=== PATIENT | male | born 1995 | race Two or more races ===

== ENCOUNTER 2018-11-27 19:25 | Emergency (ER) | payer SELFPAY ==
[2018-11-27 19:31] VITALS: BP 145/90; PULSE 115; BMI 30.2
[2018-11-27] MEDS ORDERED: ACETAMINOPHEN 325 MG TABLET (FP) ONE (20:22)
--- NOTE | 2018-11-27 20:22 | PDOC ---
History of Present Illness - General Chief Complaint: Pain, Acute Stated Complaint: HEADACE Time Seen by Provider: 11/27/18 19:48 History Source: Patient Exam Limitations: No Limitations - History of Present Illness Initial Comments: 11/27/18 20:19 HISTORY OF PRESENT ILLNESS: No recent travel or sick contacts. PAST MEDICAL HISTORY: Denies past medical history SURGICAL HISTORY: Denies ALLERGIES: No known drug allergies REVIEW OF SYSTEMS General/Constitutional: Denies fever or chills. Denies weakness, weight change. HEENT: Denies change in vision. Denies ear pain or discharge. Denies sore throat. Cardiovascular: Denies chest pain or shortness of breath. Respiratory: Denies cough, wheezing, or hemoptysis. Gastrointestinal: Denies nausea, vomiting, diarrhea or constipation. Denies rectal bleeding. Genitourinary: Denies dysuria, frequency, or change in urination. Musculoskeletal: Denies joint or muscle swelling or pain. Denies neck or back pain. Skin and breasts: Denies rash or easy bruising. Neurologic: Denies headache, vertigo, loss of consciousness, or loss of sensation. Psychiatric: Denies depression or anxiety. Endocrine: Denies increased thirst. Denies abnormal weight change. Hematologic/Lymphatic: Denies anemia, easy bleeding, or history of blood clots. Allergic/Immunologic: Denies hives or skin allergy. Denies latex allergy. PHYSICAL EXAM General Appearance: Well-appearing, appropriately dressed. No apparent distress , no intoxication. HEENT: EOMI, PERRLA, normal ENT inspection, normal voice, TMs normal, pharynx normal. No conjunctival pallor. No photophobia, scleral icterus. Neck: Supple. Trachea midline. No tenderness, rigidity, carotid bruit, stridor , lymphadenopathy, or thyromegaly. Respiratory/Chest: Lungs CTAB. No shortness of breath, chest tenderness, respiratory distress, accessory muscle use. No crackles, rales, rhonchi, stridor , wheezing, dullness Cardiovascular: RRR. S1, S2. No JVD, murmur, bradycardia, tachycardia. Vascular Pulses: Dorsalis-Pedis (R): 2+, Dorsalis-Pedis (L): 2+ Gastrointestinal/Abdominal: Normal bowel sounds. Abdomen soft, non-distended. No tenderness or rebound tenderness. No organomegaly, pulsatile mass, guarding, hernia, hepatomegaly, splenomegaly. Lymphatic: No adenopathy, tenderness. Musculoskeletal/Extremities: Normal inspection. FROM of all extremities, normal capillary refill. Pelvis Stable. No CVA tenderness. No tenderness to extremities, pedal edema, swelling, erythema or deformity. Integumentary: Appropriate color, dry, warm. 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 Fully oriented, alert. Appropriate mood/affect. Motor strength 5/5. No appreciable EOM palsy, facial droop or sensory deficit. Past History - Past Medical History Allergies/Adverse Reactions: Allergies Allergy/AdvReac Type Severity Reaction Status Date / Time No Known Allergies Allergy Verified 11/27/18 19:31 Home Medications: Ambulatory Orders NK [No Known Home Medication] 11/27/18 COPD: No CHF: No - Immunization History Immunization Up to Date: Yes - Suicide/Smoking/Psychosocial Hx Smoking History: Never smoked Have you smoked in the past 12 months: No Information on smoking cessation initiated: No Hx Alcohol Use: No Drug/Substance Use Hx: No *Physical Exam - Vital Signs Last Vital Signs Temp Pulse Resp BP Pulse Ox 101.2 F H 115 H 16 145/90 100 11/27/18 19:29 11/27/18 19:29 11/27/18 19:29 11/27/18 19:29 11/27/18 19:29 Moderate Sedation - Procedure Monitoring Vital Signs: Procedure Monitoring Vital Signs Temperature 101.2 F H 11/27/18 19:29 Pulse Rate 115 H 11/27/18 19:29 Respiratory Rate 16 11/27/18 19:29 Blood Pressure 145/90 11/27/18 19:29 O2 Sat by Pulse Oximetry (%) 100 11/27/18 19:29 Medical Decision Making - Medical Decision Making 11/27/18 20:19 /P: 23-year-old male with postconcussive syndrome and probable upper respiratory infection Cranial nerves II through XII grossly intact Gait steady Oropharynx mildly erythematous Tylenol 650 mg orally now Motrin 600 mg orally now Discharge home *DC/Admit/Observation/Transfer Diagnosis at time of Disposition: Post concussion syndrome URI (upper respiratory infection) Qualifiers: URI type: acute nasopharyngitis (common cold) Qualified Code(s): J00 - Acute nasopharyngitis [common cold] - Discharge Dispostion Disposition: HOME Condition at time of disposition: Stable Decision to Admit order: No - Referrals - Patient Instructions Additional Instructions: Rest, drink lots of fluids: Teas, water, soups, Pedialyte Saltwater gargles Steamy showers/seem to face break up mucus Avoid contact with others until fevers and cough resolved Lots of handwashing and good hygiene Continue [id number] medications for symptomatic relief Tylenol or Motrin for fever and pain Avoid electronic devices including computers, tablets, phones and television. Avoid reading. Follow-up with your doctor within the next week for reevaluation. Child symptoms may last for 4-6 weeks. This is normal. If you sustain another head injury the time period would restart. Return to the emergency department for any new or worsening symptoms. Followup with private physician in one to 2 days as needed Return to emergency department for worsened symptoms, fevers, dehydration - Post Discharge Activity Forms/Work/School Notes: Back to Work
[2018-11-27] MEDS ORDERED: IBUPROFEN 600 MG TABLET (FP) PO ONE (20:23)
[2018-11-27 20:47] VITALS: TEMP 99.4
== END 2018-11-27 20:57 | disposition home or self-care (01) ==
LOC: JERFT 19:25
DX: F07.81 Postconcussional syndrome (principal); R51 Headache; J06.9 Acute upper respiratory infection, unspecified
CPT/HCPCS: 99281-25

== ENCOUNTER 2018-11-28 09:40 | Emergency (ER) | payer SELFPAY ==
[2018-11-28 10:04] VITALS: BP 143/78; PULSE 108; TEMP 102.1; BMI 32.9
[2018-11-28] MEDS ORDERED: IBUPROFEN 600 MG TABLET (FP) PO ONE ×2 (10:43→10:50)
--- NOTE | 2018-11-28 10:44 | PDOC ---
History of Present Illness - General Chief Complaint: Cold Symptoms Stated Complaint: SEVERE HEADACHE Time Seen by Provider: 11/28/18 10:33 History Source: Patient Exam Limitations: No Limitations - History of Present Illness Initial Comments: 11/28/18 10:46 Patient was seen here yesterday with complaints of headache pain. States lifted head up and struck the back of his head 4 days ago on the underneath side of a metal table and since that time has had headache. However 3 days ago had onset of fevers, chills, body aches, headache pain different from the pain from his injury. Timing/Duration: reports: just prior to arrival Severity: reports: mild, moderate Associated Symptoms: reports: dizziness, earache, fever/chills, headache, nasal congestion Past History - Travel Traveled outside of the country in the last 30 days: No Close contact w/someone who was outside of country & ill: No - Past Medical History Allergies/Adverse Reactions: Allergies Allergy/AdvReac Type Severity Reaction Status Date / Time No Known Allergies Allergy Verified 11/28/18 10:04 Home Medications: Ambulatory Orders NK [No Known Home Medication] 11/27/18 COPD: No CHF: No - Immunization History Immunization Up to Date: Yes - Suicide/Smoking/Psychosocial Hx Smoking History: Never smoked Have you smoked in the past 12 months: No Information on smoking cessation initiated: No Hx Alcohol Use: No Drug/Substance Use Hx: No Review of Systems - Review of Systems Able to Perform ROS?: Yes Is the patient limited Divehi proficient: Yes Constitutional: Yes: Symptoms Reported, See HPI, Chills, Fever, Loss of Appetite , Malaise HEENTM: Yes: Symptoms Reported, See HPI, Nose Congestion Respiratory: Yes: Symptoms reported, See HPI, Cough, Wheezing All Other Systems: Reviewed and Negative *Physical Exam - Vital Signs Last Vital Signs Temp Pulse Resp BP Pulse Ox 102.1 F H 108 H 16 143/78 100 11/28/18 10:01 11/28/18 10:01 11/28/18 10:01 11/28/18 10:01 11/28/18 10:01 - Physical Exam General Appearance: Yes: Nourished, Appropriately Dressed, Apparent Distress, Mild Distress HEENT: positive: EUGENIO, TMs Normal, Tonsillar Exudate, Tonsillar Erythema, Nasal Congestion, Rhinorrhea, Other (tenderness to occiput however no obvious hematoma , crepitus or step-offs, no bruising noted to scalp at area where patient complaints of pain.) Neck: positive: Tender, Supple, Lymphadenopathy (R), Lymphadenopathy (L) Respiratory/Chest: positive: Chest Tender, Lungs Clear Gastrointestinal/Abdominal: positive: Normal Bowel Sounds, Soft. 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 *DC/Admit/Observation/Transfer Diagnosis at time of Disposition: Post concussion syndrome URI (upper respiratory infection) Qualifiers: URI type: unspecified viral URI Qualified Code(s): J06.9 - Acute upper respiratory infection, unspecified - Discharge Dispostion Disposition: HOME Condition at time of disposition: Stable Decision to Admit order: No - Referrals - Patient Instructions Printed Discharge Instructions: DI for Viral Upper Respiratory Infection -- Adult, DI for Postconcussion Syndrome Additional Instructions: Rest, drink lots of fluids: Teas, water, soups, Pedialyte Saltwater gargles Steamy showers/seem to face break up mucus Old-fashioned treatments help! Avoid contact with others until fevers and cough resolved as this is very contagious Lots of handwashing and good hygiene Continue [id number] medications for symptomatic relief Tylenol or Motrin for fever and pain Followup with private physician in one to 2 days as needed or if worsening Return to emergency department for worsened symptoms, fevers, dehydration Influenza takes between 5 and 7 days for resolution To not participate in any activity, work, or school until fevers and cough are gone for at least one day - Post Discharge Activity Forms/Work/School Notes: Back to Work
== END 2018-11-28 12:34 | disposition home or self-care (01) ==
LOC: JERFT 09:40
DX: G44.309 Post-traumatic headache, unspecified, not intractable (principal); F07.81 Postconcussional syndrome; J06.9 Acute upper respiratory infection, unspecified; W22.8XXA Striking against or struck by other objects, initial encounter; Y93.89 Activity, other specified; Y92.89 Other specified places as the place of occurrence of the external cause; Y99.8 Other external cause status
CPT/HCPCS: 70450-TC; 87804; 99281-25